=== PATIENT | female | born 1995 | race Caucasian/White ===

== ENCOUNTER 2018-05-11 14:51 | Outpatient (CLI) | payer MEDICAID, SELFPAY ==
[2018-05-11 15:37] LABS: HCG Quant, Pregnancy 583 mIU/mL (1-3)
== END 2018-05-11 15:11 ==
PROVIDERS: Visit Provider Obstetrics & Gynecology Gynecology
DX: R10.2 Pelvic and perineal pain (principal)
CPT/HCPCS: 36415; 84702

== ENCOUNTER 2018-06-24 16:06 | Outpatient (REF) | payer BC, MEDICAID, SELFPAY ==
[2018-06-24 17:13] LABS: Tricyclic Antidepressants Negative (Negative)
[2018-06-24 17:14] LABS: *AMPHETAMINES SCREEN URINE Negative (Negative); *BARBITURATES SCREEN URINE Negative (Negative); *BENZODIAZEPINES SCREEN URINE Negative (Negative); Cannabinoids THC POSITIVE (Negative); Cocaine Screen,Urine Negative (Negative); METHADONE URINE SCREEN Negative (Negative); OPIATES URINE SCREEN Negative (Negative)
[2018-06-28 14:07] LABS: Chlamydia Result Negative; GC Result Negative; Specimen Description CERVICAL
[2018-06-30 15:29] LABS: Buprenorphine Negative; Norbuprenorphine Negative
== END 2018-06-24 16:26 ==
LOC: LBN 16:06
PROVIDERS: Visit Provider Nurse Practitioner
DX: O09.299 Supervision of pregnancy with other poor reproductive or obstetric history, unspecified trimester (principal); Z11.3 Encounter for screening for infections with a predominantly sexual mode of transmission
CPT/HCPCS: 80307; 87491; 87591; 87480; 87510; 87660

== ENCOUNTER 2018-07-09 16:26 | Outpatient (REF) | payer BC, MEDICAID, SELFPAY | END 2018-07-09 16:46 | LOC: LBN 16:26 | PROVIDERS: Visit Provider Obstetrics & Gynecology | DX: R05 Cough (principal) | CPT/HCPCS: 87449 ==

== ENCOUNTER 2018-07-27 14:25 | Outpatient (CLI) | payer BC, MEDICAID, SELFPAY ==
--- NOTE | 2018-07-27 10:15 | DI.US_ITS ---
SYMPTOMS/DIAGNOSIS: VAGINAL BLEEDING AT 21 WKS GESTATION, O20.9, HEMORRHAGE IN EARLY OB ULTRASOUND: The fetus is in variable position. The placenta is posterior and appears intact. There is no evidence of previa. The biometric measurements correspond to 15 weeks 6 days and EDC of [id number]. No gross abnormalities are seen. The amount of amniotic fluid appears normal. cardiac activity is demonstrated at 152 bpm. IMPRESSION: Living intrauterine gestation of 15 weeks 6 days. No placental hemorrhage is seen. Many abnormalities cannot be diagnosed. A normal exam does not exclude a congenital anomaly. Radiology No. [id number] LMP: Exam Date: 07/27/18 [facility] wks days on EDC ([facility]) 01/16/19 Confirmed: HISTORY: vaginal bleeding PREDICTED GESTATIONAL AGE NUMBER 15+2 weeks with a range of 14+2 weeks to 16+2 weeks. 1 Determined by___1STUS___LMP___HISTORY Info. pertaining to fetus # PLACENTA PRESENTATION Grade 0-I Cephalic___ Anterior___Posterior X Breech____ Right Left Transverse(head right___ Fundal___Low-lying___Previa___ Transverse(head left___ Varying X BIOMETRY AMNIOTIC FLUID BPD: 32 mm 16 weeks Normal HC: 118 mm 15+6 weeks AC: 98 mm 15+6 weeks FL: 18 mm 15+3 weeks AMNIOTIC FLUID INDEX >26 WK CRL: mm weeks Cisterna Magna: mm CI: RUQ: LUQ Cerebellum: cm EFW: grams Percentile RLQ: LLQ Total: cms Composite AGE= 15+6 wks EDC by US 01/12/19 BIOPHYSICAL PROFILE ANATOMY IDENTIFIED SCORE 0/2 Heart: 4-Chamber___Rate: 152 BPM LVOT: RVOT: Amniotic Fluid(>2cms)____ Stomach: Kidneys: Respirations (>30 secs) Bladder: Post. Fossa: Body Flex/Extension 3 vessel cord: Ventricles: cord insertion: Lips:____ Extremity Flex/Extension spinal morphology: Nose: Total Score= Palate: NS=not seen
== END 2018-07-27 14:45 ==
PROVIDERS: Visit Provider Obstetrics & Gynecology
DX: O20.8 Other hemorrhage in early pregnancy (principal); Z34.92 Encounter for supervision of normal pregnancy, unspecified, second trimester
CPT/HCPCS: 76816

== ENCOUNTER 2018-08-24 00:57 | Outpatient (CLI) | payer BC, MEDICAID, SELFPAY ==
--- NOTE | 2018-08-24 14:47 | DI.US_ITS ---
SYMPTOMS/DIAGNOSIS: S/P FALL, PROTEIN S DEFICIENCY, HIGH-RISK , D68.59, Z98.891, O09.299 OB ULTRASOUND: Many abnormalities cannot be diagnosed. A normal exam does not exclude a congenital anomaly. Radiology No. [id number] LMP: 04/11/18 Exam Date: 08/24/18 [facility] wks days on EDC ([facility]) 01/16/19 Confirmed: HISTORY: PREDICTED GESTATIONAL AGE NUMBER 19+2 weeks with a range of 18+2 weeks to 20+2 weeks. 1 Determined by___1STUS___LMP___HISTORY PLACENTA PRESENTATION Grade 0-I Cephalic___ Anterior___Posterior_X__ Breech__X__ Right Left Transverse(head right___ Fundal___Low-lying___Previa___ Transverse(head left___ Varying BIOMETRY AMNIOTIC FLUID BPD: 43 mm 19+1 weeks Normal HC: 169 mm 19+4 weeks AC: 136 mm 19+1 weeks FL: 30 mm 19+3 weeks AMNIOTIC FLUID INDEX >26 WK CRL: mm weeks Cisterna Magna: 4.1 mm CI: 78 RUQ: LUQ Cerebellum: 1.8 cm EFW: 282 grams Percentile RLQ: LLQ Total: cms Composite AGE= 19+2 wks EDC by US: 01/16/19 BIOPHYSICAL PROFILE ANATOMY IDENTIFIED SCORE 0/2 Heart: 4-Chamber_X__Rate:BPM 144 LVOT:____X RVOT:__X Amniotic Fluid(>2cms)____ Stomach:___X____ Kidneys:__X Respirations (>30 secs) Bladder:___X Post. Fossa: X Body Flex/Extension 3-vessel cord:___X____Ventricles:___X Cord insertion:__X___ Lips:__X__ Extremity Flex/Extension Spinal morphology:__X Nose:__X___ Total Score= Palate:___X____ NS=not seen
== END 2018-08-24 01:17 ==
PROVIDERS: Visit Provider Obstetrics & Gynecology Gynecology
DX: D68.59 Other primary thrombophilia (principal); O09.299 Supervision of pregnancy with other poor reproductive or obstetric history, unspecified trimester; Z98.891 History of uterine scar from previous surgery; Z34.92 Encounter for supervision of normal pregnancy, unspecified, second trimester
CPT/HCPCS: 76805

== ENCOUNTER 2018-09-22 01:59 | Outpatient (CLI) | payer BC, MEDICAID, SELFPAY ==
--- NOTE | 2018-09-22 15:07 | DI.US_ITS ---
SYMPTOM/DIAGNOSIS: HX OF LABOR O09.292 LIMITED OBSTETRICAL ULTRASOUND: There is a single intrauterine gestation. The fetus was in varying position during the examination. heart rate is 143 beats per minute. anatomic evaluation and dating was not performed at this examination. The placenta is posterior. No evidence of previa is seen. Cervical length is 4.2 cm. IMPRESSION: 1. Single intrauterine gestation. 2. Cervical length of 4.2 cm Many abnormalities cannot be diagnosed. A normal exam does not exclude a congenital anomaly. Radiology No. [id number] LMP: Exam Date: 09/22/18 [facility] wks days on EDC ([facility]) 01/16/19 Confirmed: HISTORY: CERVICAL LENGTH PREDICTED GESTATIONAL AGE NUMBER 23 +3 weeks with a range of 22 +3 week to 24 +3 weeks. 1 Determined by___1STUS___LMP_XX__HISTORY Info. pertaining to fetus # PLACENTA PRESENTATION Grade I Cephalic___ Anterior___Posterior_XX__ Breech____ Right Left Transverse(head right___ Fundal___Low-lying___Previa___ Transverse(head left___ Varying__XX____ BIOMETRY AMNIOTIC FLUID BPD: mm weeks Normal HC: mm weeks Oligo Polyhydramnios AC: mm weeks FL: mm weeks AMNIOTIC FLUID INDEX >26 WK CRL: mm weeks Cisterna Magna: mm CI: RUQ: LUQ Cerebellum: cm EFW: grams Percentile RLQ: LLQ Total: cms Composite AGE= wks EDC by US BIOPHYSICAL PROFILE ANATOMY IDENTIFIED SCORE 0/2 Heart: 4-Chamber___Rate:BPM__143 BPM___ LVOT: RVOT: Amniotic Fluid(>2cms)____ Stomach: Kidneys: Respirations (>30 secs) Bladder: Post. Fossa: Body Flex/Extension 3 vessel cord: Ventricles: cord insertion: Lips:____ Extremity Flex/Extension spinal morphology: Nose: Total Score= Palate: NS=not seen
== END 2018-09-22 02:19 ==
PROVIDERS: Visit Provider Obstetrics & Gynecology Gynecology
DX: O09.292 Supervision of pregnancy with other poor reproductive or obstetric history, second trimester (principal); Z34.92 Encounter for supervision of normal pregnancy, unspecified, second trimester
CPT/HCPCS: 76815

== ENCOUNTER 2018-09-22 10:38 | Outpatient (RCR) | payer BC, MEDICAID, SELFPAY | END 2018-10-10 23:59 | disposition home or self-care (01) | LOC: BCD 10:38 | PROVIDERS: Visit Provider Obstetrics & Gynecology Gynecology | DX: O09.212 Supervision of pregnancy with history of pre-term labor, second trimester (principal) | CPT/HCPCS: 96372 ==

== ENCOUNTER 2018-10-10 11:27 | Observation (INO) | payer BC, MEDICAID, SELFPAY ==
[2018-10-10] MEDS: Terbutaline 1 MG/ML VIAL 0.25 MG SC (14:01)
[2018-10-10] MEDS: Betamet Acet/Betamet Na Ph Inj. 30 MG/5 ML 12 MG IM (14:36)
[2018-10-10] MEDS: Lactated Ringers 500 ML 150 ML IV (14:45)
--- NOTE | 2018-10-10 15:13 | HPE_ITS ---
Date of service: 10/10/18 Time of Service: 15:13 [facility] Medical History Protein S deficiency (Chronic) History of asthma (Chronic) Family history of protein S deficiency (Chronic) Anxiety (Chronic) Tobacco use Surgical History Surgery skin graft left shoulder. [id number] (Resolved) section (Resolved) Tonsillectomy and adenoidectomy (Resolved) Family History Mother Protein S deficiency Father No problems noted. Grandmother Breast cancer Social History Smoking/Tobacco Use Status: Current-Occasional (5-6 per week ) Alcohol Intake: former (stopped at time of + test ) Substance use type: marijuana (use daily for pain and sleep ) Female Reproductive History Menstrual Duration of menses: other (Patient has been essentially amenorrheic for the last 3 years because of and breast-feeding) History History 5 Para 3 Hx # Term Pregnancies 0 Multiple births 0 Hx # Pregnancies 3 Ectopic pregnancies AB induced Hx Number of Living Children 3 AB spontaneous 1 Past Pregnancies Del. Date GA/Weeks # Outcome Route Wgt Sex Labor Lgth Anesthesia Location Prov Complic 02/23/15 29 Yes Male 01/02/16 30 No Successful Female 06/07/17 27 No Successful [place] [facility] [place]: 06/07/17 On 06/05/18 @ 17:18 Liz Sinclair 06/07/17 [facility]. 27w4d F. labor, [place] [facility] [place] Had progesterone but started after 16w and missed 1 dose. Delivery Date: 01/02/16 On 08/07/18 @ 13:59 Liz [place]. Did not have Progesterone inj. Repeat LTCS : 01-02-16 double layer Vicryl. PTL @ 30w0d. Delivery Date: 02/23/15 On 08/07/18 @ 13:59 Liz Sinclair Primary : 02-23-15 @ 29w5d LTCS single layer Chromic. PTL with chorio. Readmission for endometritis 19d postop. Repeat LTCS : 01-02-16 double layer Vicryl. PTL @ 30w0d. 06/07/17 RLT[facility]. 27w4d F. labor, bree[place] [facility] [place] Meds Home Medications Medication Instructions Recorded Confirmed Type albuterol (refill) 90 mcg IH 05/10/18 09/29/18 History mcg/actuation aerosol inhaler vit 47-iron fum 27 mg 1 cap PO DAILY #90 cap 05/11/18 09/29/18 Rx iron-folate no1 1 mg-dha 300 mg capsule lidocaine 5 % topical patch 1 patch TP DAILY #15 each 05/27/18 09/29/18 Rx albuterol sulfate HFA 90 1 puff IH Q6H PRN #8 gm 07/09/18 09/29/18 Rx mcg/actuation aerosol inhaler hydroxyprogesterone caproate 250 mg IM QWEEK 147 Days #21 ml 07/27/18 09/29/18 Rx ( preserving) 250 mg/mL MDD 1ml IM oil prazosin 1 mg capsule 1 mg PO BID #30 cap 08/06/18 09/29/18 Rx tramadol 50 mg tablet 50 mg PO Q6H PRN #10 tab 08/06/18 09/29/18 Rx tramadol 50 mg tablet 50 mg PO Q6H PRN #14 tab 09/22/18 09/29/18 Rx nifedipine ER 30 mg 30 mg PO DAILY #20 tab 09/29/18 09/29/18 Rx tablet,extended release Allergies Allergy/AdvReac Type Severity Reaction Status Date / Time ondansetron HCl AdvReac Flu like Unverified 09/29/18 15:12 [From Zofran (as symptoms hydrochloride)]
--- NOTE | 2018-10-10 15:21 | W.PM.HP.N ---
Date of service: 10/10/18 Time of Service: 15:21 Assessment and Plan (1) labor in second trimester: Current visit: Yes Status: Acute Plan for transfer to [facility]. I spoke to the patient regarding transfer to [facility]. The patient refused transfer the [facility] despite this being the closest facility. The patient was provided the following medications: Terbutaltine 0.25 mg SQ x 1 Nifedipine 20 mg PO x 1 Magnesium sulfate 4 gm bolus then 2gm/hr Betamethasone 12mg IM Morphine 2 mg IV x 2 doses. GBS culture collected as well as UA, UDS. (2) Previous section: Current visit: No Status: Acute History of Present Illness Chief Complaint: labor 26 weeks Narrative: 23 year old @ 26 weeks gestation presents to labor and delivery with complaint of regular and painful contractions beginning about 1030 this morning. She did report some leakage of fluid shortly after admission. Nitrazine and fern were negative. Her obstetrical history is significant for 3 prior deliveries from 26 - 30 weeks with low transverse sections in each. She has been on Hanna this . On admission her cervix was closed. She was provided 12 mg of Bethamethasone x 1. There was difficulty achieving IV access initially and was first given .25 mg SQ terbutaline eventually followed by 20 mg of PO Nifedipine. Eventually IV access was achieved and a 4 gm magnesium sulfate bolus was given followed by 2 gm/hr thereafter. The patients medical history is significant for Protein S deficiency but is not on anticoagulation and was diagnosed through family history . She does have mild intermittent asthma. Review of Systems Review of Systems All systems reviewed & are unremarkable except as noted in HPI and below PFSH Medical History Protein S deficiency (Chronic) History of asthma (Chronic) Family history of protein S deficiency (Chronic) Anxiety (Chronic) Tobacco use Surgical History Surgery skin graft left shoulder. [id number] (Resolved) section (Resolved) Tonsillectomy and adenoidectomy (Resolved) Family History Mother Protein S deficiency Father No problems noted. Grandmother Breast cancer Social History Smoking/Tobacco Use Status: Current-Occasional (5-6 per week ) Alcohol Intake: former (stopped at time of + test ) Substance use type: marijuana (use daily for pain and sleep ) Female Reproductive History Menstrual Duration of menses: other (Patient has been essentially amenorrheic for the last 3 years because of and breast-feeding) History History 5 Para 3 Hx # Term Pregnancies 0 Multiple births 0 Hx # Pregnancies 3 Ectopic pregnancies AB induced Hx Number of Living Children 3 AB spontaneous 1 Past Pregnancies Del. Date GA/Weeks # Outcome Route Wgt Sex Labor Lgth Anesthesia Location Prov Complic 02/23/15 29 Yes Male 01/02/16 30 No Successful Female 06/07/17 27 No Successful Female [facility] [place] Delivery Date: 06/07/17 On 06/05/18 @ 17:18 Liz Sinclair 06/07/17 RLTCS. 27w4d F. labor, breech presentation @ [facility] [place]. Had progesterone but started after 16w and missed 1 dose. Delivery Date: 01/02/16 On 08/07/18 @ 13:59 Liz Sinclair [place] state. Did not have Progesterone inj. Repeat LTCS : 01-02-16 double layer Vicryl. PTL @ 30w0d. Delivery Date: 02/23/15 On 08/07/18 @ 13:59 Liz Sinclair Primary : 02-23-15 @ 29w5d LTCS single layer Chromic. PTL with chorio. Readmission for endometritis 19d postop. Repeat LTCS : 01-02-16 double layer Vicryl. PTL @ 30w0d. 06/07/17 RLTCS. 27w4d F. labor, breech presentation @ [facility] [place]. Meds Home Medications Medication Instructions Recorded Confirmed Type albuterol (refill) 90 mcg IH 05/10/18 09/29/18 History mcg/actuation aerosol inhaler vit 47-iron fum 27 mg 1 cap PO DAILY #90 cap 05/11/18 09/29/18 Rx iron-folate no1 1 mg-dha 300 mg capsule lidocaine 5 % topical patch 1 patch TP DAILY #15 each 05/27/18 09/29/18 Rx albuterol sulfate HFA 90 1 puff IH Q6H PRN #8 gm 07/09/18 09/29/18 Rx mcg/actuation aerosol inhaler hydroxyprogesterone caproate 250 mg IM QWEEK 147 Days #21 ml 07/27/18 09/29/18 Rx ( preserving) 250 mg/mL MDD 1ml IM oil prazosin 1 mg capsule 1 mg PO BID #30 cap 08/06/18 09/29/18 Rx tramadol 50 mg tablet 50 mg PO Q6H PRN #10 tab 08/06/18 09/29/18 Rx tramadol 50 mg tablet 50 mg PO Q6H PRN #14 tab 09/22/18 09/29/18 Rx nifedipine ER 30 mg 30 mg PO DAILY #20 tab 09/29/18 09/29/18 Rx tablet,extended release Allergies Allergy/AdvReac Type Severity Reaction Status Date / Time ondansetron HCl AdvReac Flu like Unverified 09/29/18 15:12 [From Zofran (as symptoms hydrochloride)] Exam Other: Cervix was closed on exam. Nitrazine and fern were negative.
--- NOTE | 2018-10-10 15:24 | HPE_ITS ---
Date of service: 10/10/18 Time of Service: 15:21 Assessment and Plan (1) labor in second trimester: Current visit: Yes Status: Acute Plan for transfer to [facility]. I spoke to the patient regarding transfer to [facility]. The patient refused transfer the [facility] the closest facility. The patient was provided the following medications: Terbutaltine 0.25 mg SQ x 1 Nifedipine 20 mg PO x 1 Magnesium sulfate 4 gm bolus then 2gm/hr Betamethasone 12mg IM Morphine 2 mg IV x 2 doses. GBS culture collected as well as UA, UDS. (2) Previous section: Current visit: No Status: Acute History of Present Illness Chief Complaint: labor 26 weeks Narrative: 23 year old @ 26 weeks gestation presents to labor and delivery with complaint of regular and painful contractions beginning about 1030 this morning. She did report some leakage of fluid shortly after admission. Nitrazine and fern were negative. Her obstetrical history is significant for 3 prior deliveries from 26 - 30 weeks with low transverse sections in each. She has been on Hanna this . On admission her cervix was closed. She was provided 12 mg of Bethamethasone x 1. There was difficulty achieving IV access initially and was first given .25 mg SQ terbutaline eventually followed by 20 mg of PO Nifedipine. Eventually IV access was achieved and a 4 gm magnesium sulfate bolus was given followed by 2 gm/hr thereafter. The patients medical history is significant for Protein S deficiency but is not on anticoagulation and was diagnosed through family history . She does have mild intermittent asthma. Review of Systems Review of Systems All systems reviewed & are unremarkable except as noted in HPI and below PFSH Medical History Protein S deficiency (Chronic) History of asthma (Chronic) Family history of protein S deficiency (Chronic) Anxiety (Chronic) Tobacco use Surgical History Surgery skin graft left shoulder. [id number] (Resolved) section (Resolved) Tonsillectomy and adenoidectomy (Resolved) Family History Mother Protein S deficiency Father No problems noted. Grandmother Breast cancer Social History Smoking/Tobacco Use Status: Current-Occasional (5-6 per week ) Alcohol Intake: former (stopped at time of + test ) Substance use type: marijuana (use daily for pain and sleep ) Female Reproductive History Menstrual Duration of menses: other (Patient has been essentially amenorrheic for the last 3 years because of and breast-feeding) History History 5 Para 3 Hx # Term Pregnancies 0 Multiple births 0 Hx # Pregnancies 3 Ectopic pregnancies AB induced Hx Number of Living Children 3 AB spontaneous 1 Past Pregnancies Del. Date GA/Weeks # Outcome Route Wgt Sex Labor Lgth Anesthesia Location Prov Complic 02/23/15 29 Yes Male 01/02/16 30 No Successful Female 06/07/17 27 No Successful Female [facility] [place] Date: 06/07/17 On 06/05/18 @ 17:18 Liz Sinclair 06/07/17 RLTCS. 27w4d F. labor, breech presentation [place] [facility] [place] Had progesterone but started after 16w and missed 1 dose. Delivery Date: 01/02/16 On 08/07/18 @ 13:59 Liz Sinclair [place] state. Did not have Progesterone inj. Repeat LTCS : 01-02-16 double layer Vicryl. PTL @ 30w0d. Delivery Date: 02/23/15 On 08/07/18 @ 13:59 Liz Sinclair Primary : 02-23-15 @ 29w5d LTCS single layer Chromic. PTL with chorio. Readmission for endometritis 19d postop. Repeat LTCS : 01-02-16 double layer Vicryl. PTL @ 30w0d. 06/07/17 RLTCS. 27w4d F. labor, breech presentation [place] [facility] [place] Meds Home Medications Medication Instructions Recorded Confirmed Type albuterol (refill) 90 mcg IH 05/10/18 09/29/18 History mcg/actuation aerosol inhaler vit 47-iron fum 27 mg 1 cap PO DAILY #90 cap 05/11/18 09/29/18 Rx iron-folate no1 1 mg-dha 300 mg capsule lidocaine 5 % topical patch 1 patch TP DAILY #15 each 05/27/18 09/29/18 Rx albuterol sulfate HFA 90 1 puff IH Q6H PRN #8 gm 07/09/18 09/29/18 Rx mcg/actuation aerosol inhaler hydroxyprogesterone caproate 250 mg IM QWEEK 147 Days #21 ml 07/27/18 09/29/18 Rx ( preserving) 250 mg/mL MDD 1ml IM oil prazosin 1 mg capsule 1 mg PO BID #30 cap 08/06/18 09/29/18 Rx tramadol 50 mg tablet 50 mg PO Q6H PRN #10 tab 08/06/18 09/29/18 Rx tramadol 50 mg tablet 50 mg PO Q6H PRN #14 tab 09/22/18 09/29/18 Rx nifedipine ER 30 mg 30 mg PO DAILY #20 tab 09/29/18 09/29/18 Rx tablet,extended release Allergies Allergy/AdvReac Type Severity Reaction Status Date / Time ondansetron HCl AdvReac Flu like Unverified 09/29/18 15:12 [From Zofran (as symptoms hydrochloride)] Exam Other: Cervix was closed on exam. Nitrazine and fern were negative.
[2018-10-10] MEDS: Normal Saline Flush 10 ML SYR IVP (18:43)
== END 2018-10-10 15:20 | disposition short-term general hospital (02) ==
PROVIDERS: Admitting Provider Obstetrics & Gynecology; Visit Provider Obstetrics & Gynecology
DX: O60.02 Preterm labor without delivery, second trimester (principal); O09.212 Supervision of pregnancy with history of pre-term labor, second trimester; Z3A.26 26 weeks gestation of pregnancy; O34.211 Maternal care for low transverse scar from previous cesarean delivery; Z36.85 Encounter for antenatal screening for Streptococcus B; O99.332 Smoking (tobacco) complicating pregnancy, second trimester; O99.322 Drug use complicating pregnancy, second trimester; Z72.0 Tobacco use; F12.90 Cannabis use, unspecified, uncomplicated
CPT/HCPCS: 99223; 87081; G0378; J0702; J2270; J3475; J3490